=== PATIENT | female | born 1985 | race Caucasian/White ===

== ENCOUNTER 2018-06-22 20:17 | Emergency (ER) | payer SELFPAY ==
[2018-06-22] MEDS ORDERED: NORMAL SALINE 1000 ML 1,000 ML IV ONE (20:50)
[2018-06-22] MEDS ORDERED: METOCLOPRAMIDE HCL INJ/PF 10 MG/2 ML SDV IV ONE (20:50)
[2018-06-22 20:56] LABS: APPEARANCE,URINE SLIGHTLY-CLOUDY; BILIRUBIN,URINE NEGATIVE (NEGATIVE); COLOR,URINE YELLOW; GLUCOSE, URINE NEGATIVE (NEGATIVE); KETONES,URINE TRACE mg/dL (NEGATIVE); LEUKOCYTE ESTERASE,URINE TRACE (NEGATIVE); NITRITE,URINE NEGATIVE (NEGATIVE); PROTEIN,URINE NEGATIVE (NEGATIVE); URINE SPECIFIC GRAVITY 1.026; UROBILINOGEN,URINE NEGATIVE mg/dL (<2.0)
--- NOTE | 2018-06-22 20:58 | ER Document Report ---
ED General - General Chief Complaint: Possible Kidney Stone Stated Complaint: LEFT SIDE PAIN Time Seen by Provider: 06/22/18 20:41 Notes: Patient is a 33-year-old female, at 12 weeks gestation by first trimester ultrasound, that comes to the emergency department for 2 complaints. First complaint is left flank pain with decreased urination and intermittent nausea. She denies overt abdominal pain but states she does have some discomfort with urination. She denies vomiting. She denies fever. She does have a history of kidney stones. Second complaint is about 2 weeks of congestion, sinus discomfort, and mild cough. She states she wants to be tested for influenza. She follows with [facility]. Past medical history of hypertension, cholecystectomy, appendectomy. She has been taking Omnicef for 3 weeks now she reports, provided by her primary provider. TRAVEL OUTSIDE OF THE [place] IN LAST 30 DAYS: No - Related Data Allergies/Adverse Reactions: No Known Allergies Allergy (Unverified 06/06/16 16:27) Past Medical History - General Information source: Patient - Social History Smoking Status: Never Smoker Chew tobacco use (# tins/day): No Frequency of alcohol use: None Drug Abuse: None Lives with: Family Family History: Reviewed & Not Pertinent Patient has suicidal ideation: No Patient has homicidal ideation: No Renal/ Medical History: Denies: Hx Peritoneal Dialysis Past Surgical History: Reports: Hx Abdominal Surgery, Hx Cholecystectomy, Hx Orthopedic Surgery - right wrist, Hx Tonsillectomy - adenoids - Immunizations Hx Diphtheria, Pertussis, Tetanus Vaccination: Yes Review of Systems - Review of Systems Constitutional: See HPI EENT: See HPI Cardiovascular: No symptoms reported Respiratory: No symptoms reported Gastrointestinal: See HPI Genitourinary: See HPI Female Genitourinary: See HPI Musculoskeletal: No symptoms reported Skin: No symptoms reported Hematologic/Lymphatic: No symptoms reported Neurological/Psychological: No symptoms reported Physical Exam - Vital signs Vitals: Temp Pulse Resp BP Pulse Ox 98.6 F 100 16 133/85 H 90 L 06/22/18 20:33 06/22/18 20:33 06/22/18 20:33 06/22/18 20:33 06/22/18 20:33 - Notes Notes: GENERAL: Alert, interacts well. No acute distress. HEAD: Normocephalic, atraumatic. EYES: Pupils equal, round, and reactive to light. Extraocular movements intact. ENT: Oral mucosa moist, tongue midline. Oropharynx unremarkable. Airway patent. Nares patent, no nasal septal hematoma, TM's intact. NECK: Full range of motion. Supple. Trachea midline. LUNGS: Clear to auscultation bilaterally, no wheezes, rales, or rhonchi. No respiratory distress. HEART: Regular rate and rhythm. No murmur ABDOMEN: Soft, non-tender. Non-distended. Bowel sounds present in all 4 quadrants. GENITOURINARY: Deferred EXTREMITIES: Moves all 4 extremities spontaneously. No edema, normal radial and dorsalis pedis pulses bilaterally. No cyanosis. BACK: no cervical, thoracic, lumbar midline tenderness. Mild tenderness over the left mid to lower back, nonspecific, no CVA tenderness specifically, no signs of trauma. No saddle anesthesia, normal distal neurovascular exam. NEUROLOGICAL: Alert and oriented x3. Normal speech. [cranial nerves II through XII grossly intact]. PSYCH: Normal affect, normal mood. SKIN: Warm, dry, normal turgor. No rashes or lesions noted. Course - Re-evaluation Re-evalutation: Initial pulse oxygenation registered as 90, this was rechecked and normal. Patient has a soft benign abdomen, no CVA tenderness noted, vague left-sided back pain without any neurological deficits. No fever. Unremarkable respiratory and ENT exam. After Reglan patient started becoming jittery and anxious, she was given Benadryl, afterward symptoms resolved. Patient requesting to be tested for influenza, this was cbc and chemistry unremarkable. Urinalysis shows ketones and mildly elevated specific gravity but otherwise is generally unremarkable. Ultrasound without any concerning findings or evidence of passing stone. I discussed results with patient in detail. She is very pleased with this. She has been given IV fluids. States she feels much improved. Urine culture sent. Patient asking for something for intermittent nausea at home. She is provided with Zofran after discussion per request. Discussed follow-up and return precautions. Patient states understanding and agreement. Unremarkable vital signs. Stable at time of discharge. - Vital Signs Vital signs: Temp Pulse Resp BP Pulse Ox 98.6 F 87 16 123/74 97 06/22/18 20:33 06/22/18 23:04 06/22/18 20:33 06/22/18 23:04 06/22/18 23:04 - Laboratory Result Diagrams: 06/22/18 21:00 06/22/18 21:00 Laboratory results interpreted by me: 06/22/18 06/22/18 06/22/18 20:45 21:00 21:00 RDW 14.8 H Chloride 108 H Carbon Dioxide 21 L Urine Ketones TRACE H Ur Leukocyte Esterase TRACE H Urine Ascorbic Acid 40 H Urine HCG, Qual POSITIVE H Discharge - Discharge Clinical Impression: Flank pain, Nausea, Dehydration Condition: Stable Disposition: HOME, SELF-CARE Additional Instructions: Your ultrasound is reassuring without evidence of passing stone. Your workup shows dehydration but no other concerning abnormality. Your influenza test is negative. Recommend patient is to apply heat on your back, takedown of her pain , improve hydration, and rest. Take nausea medication if needed. Follow-up with your provider. Return if you worsen including vomiting, fever, abdominal pain or worsening flank pain, or any other concerning symptoms. Prescriptions: Ondansetron [Zofran Odt 4 mg Tablet] 1 - 2 tab PO Q4H PRN #15 tab.rapdis PRN Reason: For Nausea/Vomiting Referrals: PARISA CONNOR MD [Primary Care Provider] - Follow up as needed
[2018-06-22 21:21] LABS: ABSOLUTE EOSINOPHILS # (AUTO) 0.2 10^3/uL (0.0-0.6); ABSOLUTE LYMPHOCYTES (AUTO) 2.3 10^3/uL (0.5-4.7); ABSOLUTE MONOCYTES (AUTO) 0.6 10^3/uL (0.1-1.4); ABSOLUTE NEUT (AUTO) 4.2 10^3/uL (1.7-8.2); BASOPHILS % (AUTO) 0.4 % (0-2); EOSINOPHILS % (AUTO) 2.6 % (0-6); HEMATOCRIT 37.4 % (36.0-47.0); HEMOGLOBIN 12.6 g/dL (12.0-15.5); LYMPHOCYTES % (AUTO) 31.1 % (13-45); MEAN CORPUSCULAR HGB CONC 33.7 g/dL (32.0-36.0); MEAN CORPUSCULAR VOLUME 80 fl (80-97); MONOCYTES % (AUTO) 8.5 % (3-13); PLATELET COUNT 319 10^3/uL (150-450); RED BLOOD COUNT 4.68 10^6/uL (3.72-5.28); RED CELL DISTRIBUTION WIDTH 14.8 % (11.5-14.0); SEGMENTED NEUTROPHILS % (AUTO) 57.4 % (42-78); TOTAL CELLS COUNTED % (AUTO) 100 %; WHITE BLOOD COUNT 7.3 10^3/uL (4.0-10.5)
[2018-06-22] MEDS ORDERED: DIPHENHYDRAMINE HCL 50 MG/ML VIAL IV ONE (21:21)
[2018-06-22 21:23] LABS: ALANINE AMINOTRANSFERASE 15 U/L (9-52); ALKALINE PHOSPHATASE 90 U/L (38-126); ANION GAP 9 (5-19); ASPARTATE AMINO TRANSFERASE 14 U/L (14-36); BILIRUBIN,DIRECT 0.3 mg/dL (0.0-0.4); BILIRUBIN,TOTAL 0.3 mg/dL (0.2-1.3); BLOOD UREA NITROGEN 10 mg/dL (7-20); CALCIUM 9.6 mg/dL (8.4-10.2); CARBON DIOXIDE 21 mmol/L (22-30); CHLORIDE 108 mmol/L (98-107); GLUCOSE 87 mg/dL (75-110); POTASSIUM 3.8 mmol/L (3.6-5.0); SODIUM 137.8 mmol/L (137-145); TOTAL PROTEIN 6.6 g/dL (6.3-8.2)
[2018-06-22 21:34] LABS: A TYPE INFLUENZA AG NEGATIVE (NEGATIVE); B INFLUENZA AG NEGATIVE (NEGATIVE)
--- NOTE | 2018-06-22 22:35 | RADIOLOGY REPORT (SQ) ---
EXAM DESCRIPTION: US RETROPERITONEUM LIMITED COMPLETED DATE/TME: 06/22/2018 20:50 CLINICAL HISTORY: 33 years, Female, left flank pain COMPARISON: None. TECHNIQUE: Transverse and longitudinal sonographic images of the kidneys and urinary bladder LIMITATIONS: None. FINDINGS: Right kidney has maximal diameter of 11.2 cm, the left 11.1 cm. No renal calculus, mass, or hydronephrosis. No perinephric fluid collection. Ureteral jets are identified within the urinary bladder. Urinary bladder grossly unremarkable. IMPRESSION: Unremarkable exam copyright 2010 [employer]- All Rights Reserved
[2018-06-22 23:05] VITALS: BP 123/74
== END 2018-06-22 23:05 | disposition home or self-care (01) ==
LOC: ER 20:17
DX: O26.891 Other specified pregnancy related conditions, first trimester (principal); E86.0 Dehydration; R10.9 Unspecified abdominal pain; R11.0 Nausea; R33.9 Retention of urine, unspecified; R30.9 Painful micturition, unspecified; Z3A.12 12 weeks gestation of pregnancy; Z79.899 Other long term (current) drug therapy
CPT/HCPCS: 99284; 96361; 96374; 96375; 36415; 85025; 81025; 80053; 81001; 87804; 76775; J1200; J2765; J7030

== ENCOUNTER 2018-07-16 09:36 | Day surgery (SDC) | payer MEDICAID ==
[~2018-07-16 09:36] MED LIST: ACETAMINOPHEN 1,000 MG/100 ML RTUPB IV ONE; FENTANYL CITRATE INJ/PF 100 MCG/2 ML AMPUL ONE; KETAMINE HCL INJ 500 MG/10 ML VIAL ONE; LIDOCAINE 1%/EPINEPHRINE INJ 20 ML VIAL ONE; METHYLERGONOVINE MALEATE INJ/PF 0.2 MG/1 ML AMPULE ONE; MIDAZOLAM 2 MG/2 ML INJ ONE; PROPOFOL INJ 200 MG/20 ML VIAL IV ONE
[2018-07-16 10:12] LABS: APPEARANCE,URINE CLOUDY; BILIRUBIN,URINE NEGATIVE (NEGATIVE); COLOR,URINE YELLOW; GLUCOSE, URINE NEGATIVE (NEGATIVE); KETONES,URINE NEGATIVE (NEGATIVE); LEUKOCYTE ESTERASE,URINE MODERATE (NEGATIVE); NITRITE,URINE NEGATIVE (NEGATIVE); PROTEIN,URINE 30 mg/dL (NEGATIVE); URINE SPECIFIC GRAVITY 1.026; UROBILINOGEN,URINE NEGATIVE mg/dL (<2.0)
[2018-07-16] MEDS ORDERED: MIDAZOLAM 2 MG/2 ML INJ ONE (10:34)
[2018-07-16] MEDS ORDERED: DIPHENHYDRAMINE HCL 50 MG/ML VIAL ONE (10:34)
[2018-07-16] MEDS ORDERED: FAMOTIDINE INJ/PF 20 MG/2 ML SDV IV ONE (10:34)
[2018-07-16] MEDS ORDERED: ALBUTEROL SULFATE 0.083% NEB 2.5 MG/3 ML AMPUL NEB ONE (10:40)
[2018-07-16 10:46] LABS: HEMATOCRIT 36.3 % (36.0-47.0); HEMOGLOBIN 12.4 g/dL (12.0-15.5); MEAN CORPUSCULAR HGB CONC 34.2 g/dL (32.0-36.0); MEAN CORPUSCULAR VOLUME 79 fl (80-97); PLATELET COUNT 260 10^3/uL (150-450); RED BLOOD COUNT 4.59 10^6/uL (3.72-5.28); RED CELL DISTRIBUTION WIDTH 14.8 % (11.5-14.0); WHITE BLOOD COUNT 6.8 10^3/uL (4.0-10.5)
[2018-07-16 11:19] LABS: ANION GAP 11 (5-19); BLOOD UREA NITROGEN 8 mg/dL (7-20); CALCIUM 9.5 mg/dL (8.4-10.2); CARBON DIOXIDE 20 mmol/L (22-30); CHLORIDE 107 mmol/L (98-107); GLUCOSE 90 mg/dL (75-110); POTASSIUM 3.9 mmol/L (3.6-5.0); SODIUM 137.9 mmol/L (137-145)
[2018-07-16] MEDS ORDERED: DEXMEDETOMIDINE INJ 80 MCG/20 ML VIAL IV ONE (11:48)
--- NOTE | 2018-07-16 12:02 | OPERATIVE REPORT E ---
Operative Report NAME: FLOYD ANDERSEN : 1985 AGE: 33Y DATE OF SURGERY: 07/16/2018 ROOM: PREOPERATIVE DIAGNOSIS: Missed AB. POSTOPERATIVE DIAGNOSIS: Missed AB. OPERATION: Suction curettage. SURGEON: Moi DENNEY M.D. ANESTHESIA: General. ESTIMATED BLOOD LOSS: Less than 50 mL. TISSUE REMOVED: Products of conception. PROCEDURE: The patient was placed in the dorsal lithotomy position, prepped and draped in the usual sterile fashion. A speculum was placed. Cervix was visualized and grasped with a single-tooth tenaculum and was sounded to a depth of 14 cm. A #8 suction catheter was then placed through the os and suction curettage was performed followed by sharp curettage followed by repeat suction. The single-tooth tenaculum was removed. Hemostasis was noted. She tolerated it well and was taken to recovery in good condition. DICTATING PHYSICIAN: Moi DENNEY M.D. [id number] PHY#: [id number] ID: [id number] JOB#: [id number] ACCT: [id number] cc:Moi DENNEY M.D. >
[2018-07-16] MEDS ORDERED: OXYCODONE-ACETAMINOPHEN 5-325 MG TABLET PO PRN (12:20)
[2018-07-16] MEDS ORDERED: ONDANSETRON 4 MG TAB.RAPDIS PO PRN (12:20)
[2018-07-16] MEDS ORDERED: MEPERIDINE HCL/PF INJ 25 MG/1 ML DISP.SYRIN IV PRN (12:25)
[2018-07-16] MEDS ORDERED: FENTANYL CITRATE INJ/PF 100 MCG/2 ML AMPUL IV PRN ×3 (12:25)
[2018-07-16] MEDS ORDERED: ONDANSETRON HCL INJ/PF 4 MG/2 ML SDV IV PRN (12:25)
[2018-07-16] MEDS ORDERED: DIPHENHYDRAMINE HCL 50 MG/ML VIAL IV PRN (12:25)
[2018-07-16] MEDS ORDERED: PROMETHAZINE HCL INJ 25 MG/1 ML VIAL IV PRN (12:25)
[2018-07-16] MEDS: FENTANYL CITRATE INJ/PF 100 MCG/2 ML AMPUL ONE ×2 (12:28→12:33)
[2018-07-16] MEDS ORDERED: KETOROLAC TROMETHAMINE 60 MG/2 ML SDV ONE (12:37)
[2018-07-16] MEDS ORDERED: GLYCOPYRROLATE 1 MG/5 ML SYRINGE ONE (12:37)
[2018-07-16] MEDS ORDERED: DEXAMETHASONE SOD PHOSPHATE INJ 4 MG/1 ML VIAL ONE (12:37)
[2018-07-16] MEDS ORDERED: METOCLOPRAMIDE HCL INJ/PF 10 MG/2 ML SDV ONE (12:37)
[2018-07-16] MEDS ORDERED: ONDANSETRON HCL INJ/PF 4 MG/2 ML SDV ONE (12:37)
[2018-07-16] MEDS ORDERED: LIDOCAINE 2% INJ-PF (20 MG/ML) 2 ML AMPUL ONE (12:37)
[2018-07-16] MEDS ORDERED: IBUPROFEN 800 MG TABLET PO SCH (14:00)
[2018-07-16 14:20] VITALS: BP 110/64
== END 2018-07-16 14:21 | disposition home or self-care (01) ==
LOC: OROUT 09:36
PROVIDERS: ATTEND Obstetrics & Gynecology Gynecology
DX: O02.1 Missed abortion (principal); I10 Essential (primary) hypertension; Z88.5 Allergy status to narcotic agent; J45.909 Unspecified asthma, uncomplicated; R00.0 Tachycardia, unspecified; M10.9 Gout, unspecified; G43.909 Migraine, unspecified, not intractable, without status migrainosus; Z91.040 Latex allergy status; Z88.1 Allergy status to other antibiotic agents; Z87.892 Personal history of anaphylaxis; Z88.3 Allergy status to other anti-infective agents
CPT/HCPCS: 86900; 86901; 36415; 86850; 85027; 80048; 81001; 88305 ×2; 59820; J2250; J1100; J1200; J1885; J3010; J3490 ×4; J2765; J2405; J2704; S0028; J0131; 1965; J2210

== ENCOUNTER 2019-09-16 14:57 | Emergency (ER) | payer MEDICAID, OTHER ==
[2019-09-16] MEDS ORDERED: HYDROXYZINE PAMOATE 25 MG CAPSULE PO ONE (15:53)
--- NOTE | 2019-09-16 15:53 | ER Document Report ---
ED Medical Screen (RME) - General Chief Complaint: Chest Pain Stated Complaint: CHEST PAIN Time Seen by Provider: 09/16/19 15:46 Primary Care Provider: BEATRIZ GAMING JR, MD [Primary Care Provider] - Follow up as needed Mode of Arrival: Ambulatory Information source: Patient Notes: 34-year-old female with history anxiety, bipolar, PTSD presents to the emergency department with complaints of chest pain radiating down her left arm. She reports she is had an episode like this couple weeks ago was taken to 5 did not do plan and they told her it was her anxiety. She does take medication for anxiety. She denies fever vomiting diarrhea. She denies history of PE DVT. She denies recent trip. Patient is not taking control. I have greeted and performed a rapid initial assessment of this patient. A comprehensive ED assessment and evaluation of the patient, analysis of test results and completion of the medical decision making process will be conducted by additional ED providers. TRAVEL OUTSIDE OF THE [place] IN LAST 30 DAYS: No - Related Data Allergies/Adverse Reactions: cephalexin [From Keflex] Allergy (Verified 09/16/19 15:45) Hives ciprofloxacin Allergy (Verified 09/16/19 15:45) Hives clarithromycin [From Biaxin] Allergy (Verified 09/16/19 15:45) Hives Latex, Natural Rubber Allergy (Verified 09/16/19 15:45) Hives peanut Allergy (Verified 09/16/19 15:45) Anaphylaxis Past Medical History - Past Medical History Cardiac Medical History: Reports: Hx Hypertension Denies: Hx Coronary Artery Disease, Hx Heart Attack Pulmonary Medical History: Denies: Hx Asthma, Hx Bronchitis, Hx COPD, Hx Pneumonia Neurological Medical History: Denies: Hx Cerebrovascular Accident, Hx Seizures Renal/ Medical History: Denies: Hx Peritoneal Dialysis Musculoskeltal Medical History: Denies Hx Arthritis Past Surgical History: Reports: Hx Abdominal Surgery, Hx Cholecystectomy, Hx Orthopedic Surgery - right wrist, Hx Tonsillectomy - adenoids - Immunizations Hx Diphtheria, Pertussis, Tetanus Vaccination: Yes Physical Exam - Vital signs Vitals: Temp Pulse Resp BP Pulse Ox 99.3 F 127 H 16 135/99 H 97 09/16/19 15:06 09/16/19 15:06 09/16/19 15:06 09/16/19 15:06 09/16/19 15:06 Course - Vital Signs Vital signs: Temp Pulse Resp BP Pulse Ox 99.3 F 127 H 16 135/99 H 97 09/16/19 15:06 09/16/19 15:06 09/16/19 15:06 09/16/19 15:06 09/16/19 15:06 Doctor's Discharge - Discharge Referrals: BEATRIZ GAMING JR, MD [Primary Care Provider] - Follow up as needed
[2019-09-16] MEDS ORDERED: ASPIRIN 81 MG TABLET, CHEWABLE PO ONE (15:54)
--- NOTE | 2019-09-16 16:24 | RADIOLOGY REPORT (SQ) ---
EXAM DESCRIPTION: CHEST 2 VIEWS COMPLETED DATE/TIME: 09/16/2019 4:07 pm REASON FOR STUDY: cp COMPARISON: None. EXAM PARAMETERS: NUMBER OF VIEWS: two views TECHNIQUE: Digital Frontal and Lateral radiographic views of the chest acquired. RADIATION DOSE: NA LIMITATIONS: none FINDINGS: LUNGS AND PLEURA: No opacities, masses or pneumothorax. No pleural effusion. MEDIASTINUM AND HILAR STRUCTURES: No masses or contour abnormalities. HEART AND VASCULAR STRUCTURES: Heart normal size. No evidence for failure. BONES: No acute findings. HARDWARE: Clips in the upper abdomen. OTHER: No other significant finding. IMPRESSION: NO ACUTE RADIOGRAPHIC FINDING IN THE CHEST. TECHNICAL DOCUMENTATION: JOB ID: [id number] 2010 [employer]- All Rights Reserved Reading location - IP/workstation name: [email or web address]
[2019-09-16] MEDS ORDERED: MAG HYDROX/AL HYDROX/SIMETH SUSP 30 ML UDCUP PO ONE (17:07)
[2019-09-16] MEDS ORDERED: LIDOCAINE 2% VISCOUS SOLN 15 ML UDCUP PO ONE (17:07)
[2019-09-16] MEDS ORDERED: NORMAL SALINE 1000 ML 1,000 ML IV ONE (17:07)
--- NOTE | 2019-09-16 17:11 | ER Document Report ---
ED General - General Chief Complaint: Chest Pain > 30 Stated Complaint: CHEST PAIN Time Seen by Provider: 09/16/19 15:46 Primary Care Provider: BEATRIZ GAMING JR, MD [Primary Care Provider] - Follow up as needed Mode of Arrival: Ambulatory TRAVEL OUTSIDE OF THE [place] IN LAST 30 DAYS: No - HPI Notes: Patient is a 34-year-old female with a history of baseline tachycardia, hypertension, anxiety, bipolar, PTSD presents complaining of having substernal chest pain, palpitations, and burning sensation in her esophagus that began last night. Patient states that the pain is been constant. Patient states that she does have some pain rating into her left arm. Patient states that this happened a few weeks ago as well and was seen at another facility and told that it was anxiety. Patient states that she does have heart history within the family otherwise. She is able to eat and drink without difficulty. She is urinating normally and having normal bowel movements. Denies any headache, fever, neck pain, URI, sore throat, syncope, cough, shortness of breath, wheeze, dyspnea, abdominal pain, nausea/vomiting/diarrhea, urinary retention, dysuria, hematuria, or rash. Denies any prolonged immobilization, distance travel, recent surgery/trauma, personal cancer history, hormone use, smoking, or previous DVT/PE. - Related Data Allergies/Adverse Reactions: cephalexin [From Keflex] Allergy (Verified 09/16/19 15:45) Hives ciprofloxacin Allergy (Verified 09/16/19 15:45) Hives clarithromycin [From Biaxin] Allergy (Verified 09/16/19 15:45) Hives Latex, Natural Rubber Allergy (Verified 09/16/19 15:45) Hives peanut Allergy (Verified 09/16/19 15:45) Anaphylaxis Past Medical History - General Information source: Patient - Social History Smoking Status: Never Smoker Chew tobacco use (# tins/day): No Frequency of alcohol use: None Drug Abuse: None Family History: Reviewed & Not Pertinent Patient has suicidal ideation: No Patient has homicidal ideation: No - Past Medical History Cardiac Medical History: Reports: Hx Hypertension Denies: Hx Coronary Artery Disease, Hx Heart Attack Pulmonary Medical History: Denies: Hx Asthma, Hx Bronchitis, Hx COPD, Hx Pneumonia Neurological Medical History: Denies: Hx Cerebrovascular Accident, Hx Seizures Renal/ Medical History: Denies: Hx Peritoneal Dialysis Musculoskeletal Medical History: Denies Hx Arthritis Past Surgical History: Reports: Hx Abdominal Surgery, Hx Cholecystectomy, Hx Orthopedic Surgery - right wrist, Hx Tonsillectomy - adenoids - Immunizations Hx Diphtheria, Pertussis, Tetanus Vaccination: Yes Review of Systems - Review of Systems -: Yes All other systems reviewed and negative Physical Exam - Vital signs Vitals: Temp Pulse Resp BP Pulse Ox 99.3 F 127 H 16 135/99 H 97 09/16/19 15:06 09/16/19 15:06 09/16/19 15:06 09/16/19 15:06 09/16/19 15:06 - Notes Notes: PHYSICAL EXAMINATION: GENERAL: Well-appearing, well-nourished and in no acute distress. HEAD: Atraumatic, normocephalic. EYES: Pupils equal round and reactive to light, extraocular movements intact, sclera anicteric, conjunctiva are normal. ENT: Nares patent and without discharge. oropharynx clear without exudates. No tonsilar hypertrophy or erythema. Moist mucous membranes. NECK: Normal range of motion, supple without lymphadenopathy. + reproducible tenderness left trapezius muscle with trigger point noted that reproduces symptoms into her left arm. Spurling, possible minimally positive. Chest: reproducible tenderness to palp sternal chest wall and by ROM. LUNGS: Breath sounds clear to auscultation bilaterally and equal. No wheezes rales or rhonchi. HEART: Regular rate and rhythm without murmurs, rubs, gallops. ABDOMEN: Soft, nontender, nondistended abdomen. No guarding, no rebound. Normal bowel sounds present. No CVA tenderness bilaterally. Musculoskeletal: FROM to passive/active. Strength 5+/5. [place] neg. No asymmetry to LE's. Extremities: No cyanosis, clubbing, or edema b/l. Peripheral pulses 2+. Capillary refill less than 3 seconds. NEUROLOGICAL: Normal speech, normal gait. PSYCH: Normal mood, normal affect. SKIN: Warm, Dry, normal turgor, no rashes or lesions noted. Course - Re-evaluation Re-evalutation: 09/16/19 17:10 HR currently 92 during my exam. 09/16/19 20:[address] Daniel who is in agreement with dispo/plan: Patient is an afebrile, well-hydrated 34-year-old female who presents to the ED with chest wall pain and left neck pain. Vitals are acceptable without any si gnificant tachycardia, tachypnea, or hypoxia. PE is otherwise unremarkable aside from the reproducible sternal chest wall tenderness and reproducible tenderness to the left trap muscle/neck. Patient is nontoxic-appearing and is tolerating p.o. without any difficulties. CBC, CMP, EKG/cardiac enzymes 2, d- dimer, chest x-ray are all unremarkable for any acute pathology. Patient has a heart score of 1, Wells score of low risk. Patient does not have any dyspnea or shortness of breath. Patient's presentation and symptomatology creates low suspicion for ACS, PE, pneumothorax, pericarditis, dissection, respiratory compromise, severe dehydration, sepsis, meningitis, or other systemic emergent condition at this time. Patient is aware that this condition can change from initial presentation and she needs to monitor symptoms closely and seek medical attention for any acute changes. Pt is feeling better and would like to go home. Recommend conservative measures for symptoms. Recheck with your PCM in 2-3 days. Consider consult with Cardiology. Return to the ED with any worsening/concerning symptoms otherwise as reviewed in discharge. Patient is in agreement. - Vital Signs Vital signs: Temp Pulse Resp BP Pulse Ox 97.5 F 105 H 18 115/78 98 09/16/19 19:20 09/16/19 19:20 09/16/19 19:20 09/16/19 19:20 09/16/19 19:20 - Laboratory Result Diagrams: 09/16/19 17:27 09/16/19 17:27 Laboratory results interpreted by me: 09/16/19 09/16/19 17:27 17:27 RBC 5.57 H MCH 26.7 L RDW 15.4 H AST 77 H ALT 109 H Discharge - Discharge Clinical Impression: Chest wall pain, Neck pain on left side Condition: Stable Disposition: HOME, SELF-CARE Instructions: Chest Wall Pain ([facility]) Additional Instructions: Maintain adequate fluid and food intake Rest, ice, heat, light stretches Low sodium/fat diet Monitor blood pressure daily and keep a log Monitor symptoms for any acute changes Recheck with your PCM in 2-3 days Consider a follow-up with cardiology Return to the ED with any worsening symptoms and/or development of fever, headache, chest pain, palpitations, syncope, shortness of breath, trouble breathing, abdominal pain, n/v/d, blood in stool/urine, loss of control of bowel/bladder, urinary retention, muscle weakness/paralysis, numbness/tingling, or other worsening symptoms that are concerning to you. Prescriptions: Ibuprofen [Motrin 800 mg Tablet] 800 mg PO Q8H PRN #15 tab PRN Reason: Methocarbamol [Robaxin 750 mg Tablet] 750 mg PO TID PRN #10 tablet PRN Reason: Forms: Return to Work Referrals: BEATRIZ GAMING JR, MD [Primary Care Provider] - Follow up as needed ROSARIO GRAY MD [ACTIVE STAFF] - Follow up as needed
[2019-09-16 17:55] LABS: APPEARANCE,URINE SLIGHTLY-CLOUDY; BILIRUBIN,URINE NEGATIVE (NEGATIVE); COLOR,URINE YELLOW; GLUCOSE, URINE NEGATIVE (NEGATIVE); KETONES,URINE NEGATIVE (NEGATIVE); LEUKOCYTE ESTERASE,URINE NEGATIVE (NEGATIVE); NITRITE,URINE NEGATIVE (NEGATIVE); PROTEIN,URINE NEGATIVE (NEGATIVE); UROBILINOGEN,URINE NEGATIVE mg/dL (<2.0)
[2019-09-16 17:57] LABS: ADD MANUAL MICROSCOPIC YES
[2019-09-16 18:01] LABS: WBC,URINE RARE /HPF
[2019-09-16 18:04] LABS: ABSOLUTE EOSINOPHILS # (AUTO) 0.2 10^3/uL (0.0-0.6); ABSOLUTE LYMPHOCYTES (AUTO) 2.7 10^3/uL (0.5-4.7); ABSOLUTE MONOCYTES (AUTO) 0.5 10^3/uL (0.1-1.4); ABSOLUTE NEUT (AUTO) 4.9 10^3/uL (1.7-8.2); BASOPHILS % (AUTO) 0.6 % (0-2); EOSINOPHILS % (AUTO) 2.5 % (0-6); HEMATOCRIT 44.5 % (36.0-47.0); HEMOGLOBIN 14.9 g/dL (12.0-15.5); LYMPHOCYTES % (AUTO) 32.7 % (13-45); MEAN CORPUSCULAR HEMOGLOBIN 26.7 pg (27.0-33.4); MEAN CORPUSCULAR HGB CONC 33.5 g/dL (32.0-36.0); MEAN CORPUSCULAR VOLUME 80 fl (80-97); MONOCYTES % (AUTO) 6.1 % (3-13); PLATELET COUNT 328 10^3/uL (150-450); RED BLOOD COUNT 5.57 10^6/uL (3.72-5.28); RED CELL DISTRIBUTION WIDTH 15.4 % (11.5-14.0); SEGMENTED NEUTROPHILS % (AUTO) 58.1 % (42-78); TOTAL CELLS COUNTED % (AUTO) 100 %; WHITE BLOOD COUNT 8.4 10^3/uL (4.0-10.5)
[2019-09-16 18:20] LABS: ALBUMIN 4.7 g/dL (3.5-5.0); ALKALINE PHOSPHATASE 122 U/L (38-126); ANION GAP 10 (5-19); ASPARTATE AMINO TRANSFERASE 77 U/L (14-36); BILIRUBIN,DIRECT 0.1 mg/dL (0.0-0.4); BILIRUBIN,TOTAL 0.4 mg/dL (0.2-1.3); BLOOD UREA NITROGEN 14 mg/dL (7-20); CALCIUM 9.8 mg/dL (8.4-10.2); CARBON DIOXIDE 28 mmol/L (22-30); CHLORIDE 101 mmol/L (98-107); GLUCOSE 89 mg/dL (75-110); POTASSIUM 4.4 mmol/L (3.6-5.0); TOTAL PROTEIN 8.1 g/dL (6.3-8.2)
[2019-09-16] MEDS ORDERED: DICYCLOMINE HCL 20 MG TABLET PO ONE (19:14)
[2019-09-16] MEDS ORDERED: LORAZEPAM INJ 2 MG/1 ML VIAL IV ONE (19:14)
--- NOTE | 2019-09-16 19:29 | EKG REPORT ---
SEVERITY:- BORDERLINE ECG - SINUS TACHYCARDIA BORDERLINE T ABNORMALITIES, INFERIOR LEADS : Confirmed by: Dorota Perez 16-Sep-2019 19:29:18
[2019-09-16] MEDS ORDERED: KETOROLAC TROMETHAMINE INJ/PF 30 MG/1 ML SDV IV ONE (19:50)
[2019-09-16] MEDS ORDERED: DEXAMETHASONE SOD PHOS INJ 10 MG/1 ML VIAL IV ONE (19:50)
[2019-09-16 21:16] VITALS: BP 118/75
== END 2019-09-16 21:10 | disposition home or self-care (01) ==
LOC: ER 14:57
DX: R07.89 Other chest pain (principal); M54.2 Cervicalgia; I10 Essential (primary) hypertension; R00.2 Palpitations; Z88.1 Allergy status to other antibiotic agents; Z91.040 Latex allergy status; Z91.010 Allergy to peanuts
CPT/HCPCS: 93005; 99285; 96361; 96374; 96375; 36415; 83735; 84443; 85025; 81025; 80053; 81001; 84484; 85379; 71046; 93010; J3490 ×2; J1885; J2060; J7030; J1100

== ENCOUNTER 2020-02-28 22:18 | Emergency (ER) | payer OTHER, MEDICAID ==
--- NOTE | 2020-02-28 23:48 | ER Document Report ---
ED Medical Screen (RME) - General Chief Complaint: Blood Pressure Problem Stated Complaint: BLOOD PRESSURE PROBLEM, SWOLLEN FEET, LEG PAIN Time Seen by Provider: 02/28/20 23:46 Primary Care Provider: BEATRIZ GAMING JR, MD [Primary Care Provider] - Follow up as needed Mode of Arrival: Ambulatory Information source: Patient Notes: HPI; 34-year-old female presents to the emergency room complaining of worsening swelling to her feet ankles that is now progressing up her right leg. Patient states she is been being seen by her primary care physician at [facility] for the past 2 months had blood work and chest x-ray done that were all within normal limits. States she has an appointment to see a digital archivist on April 07 but the swelling has gotten worse. Is currently taking Lasix potassium and metoprolol which she states is not helping. She denies any recent travel. No history of DVTs. No COVID-19 exposure. No change in diet. PE: Alert and oriented x3. Mild distress noted. Lungs: Clear to auscultation without rales, rhonchi, wheezes. Heart: Tachycardic without murmurs, rubs, gallops. 2+ pitting edema bilaterally to her lower extremities. I have greeted and performed a rapid initial assessment of this patient. A comprehensive ED assessment and evaluation of the patient, analysis of test results and completion of the medical decision making process will be conducted by additional ED providers. I have specifically instructed the patient or family members with the patient to immediately return to any nursing staff should anything change in the patient's condition or with their chief complaint. TRAVEL OUTSIDE OF THE [place] IN LAST 30 DAYS: No - Related Data Allergies/Adverse Reactions: cephalexin [From Keflex] Allergy (Verified 09/16/19 15:45) Hives ciprofloxacin Allergy (Verified 09/16/19 15:45) Hives clarithromycin [From Biaxin] Allergy (Verified 09/16/19 15:45) Hives Latex, Natural Rubber Allergy (Verified 09/16/19 15:45) Hives peanut Allergy (Verified 09/16/19 15:45) Anaphylaxis Past Medical History - Past Medical History Cardiac Medical History: Reports: Hx Hypertension Denies: Hx Coronary Artery Disease, Hx Heart Attack Pulmonary Medical History: Denies: Hx Asthma, Hx Bronchitis, Hx COPD, Hx Pneumonia Neurological Medical History: Denies: Hx Cerebrovascular Accident, Hx Seizures Renal/ Medical History: Denies: Hx Peritoneal Dialysis Musculoskeltal Medical History: Denies Hx Arthritis Past Surgical History: Reports: Hx Abdominal Surgery, Hx Cholecystectomy, Hx Orthopedic Surgery - right wrist, Hx Tonsillectomy - adenoids - Immunizations Hx Diphtheria, Pertussis, Tetanus Vaccination: Yes Physical Exam - Vital signs Vitals: Temp Pulse Resp BP Pulse Ox 97.9 F 103 H 18 116/76 93 02/28/20 22:37 02/28/20 22:37 02/28/20 22:37 02/28/20 22:37 02/28/20 22:37 Course - Vital Signs Vital signs: Temp Pulse Resp BP Pulse Ox 97.9 F 103 H 18 116/76 93 02/28/20 22:37 02/28/20 22:37 02/28/20 22:37 02/28/20 22:37 02/28/20 22:37 Doctor's Discharge - Discharge Referrals: BEATRIZ GAMING JR, MD [Primary Care Provider] - Follow up as needed
[2020-02-29 00:07] LABS: ABSOLUTE BASOPHILS # (AUTO) 0.1 10^3/uL (0.0-0.2); ABSOLUTE EOSINOPHILS # (AUTO) 0.4 10^3/uL (0.0-0.6); ABSOLUTE MONOCYTES (AUTO) 0.5 10^3/uL (0.1-1.4); ABSOLUTE NEUT (AUTO) 3.6 10^3/uL (1.7-8.2); BASOPHILS % (AUTO) 0.8 % (0-2); EOSINOPHILS % (AUTO) 5.2 % (0-6); HEMATOCRIT 38.2 % (36.0-47.0); HEMOGLOBIN 12.5 g/dL (12.0-15.5); LYMPHOCYTES % (AUTO) 39.9 % (13-45); MEAN CORPUSCULAR HEMOGLOBIN 25.9 pg (27.0-33.4); MEAN CORPUSCULAR HGB CONC 32.7 g/dL (32.0-36.0); MEAN CORPUSCULAR VOLUME 79 fl (80-97); MONOCYTES % (AUTO) 6.2 % (3-13); PLATELET COUNT 274 10^3/uL (150-450); RED BLOOD COUNT 4.81 10^6/uL (3.72-5.28); RED CELL DISTRIBUTION WIDTH 16.1 % (11.5-14.0); SEGMENTED NEUTROPHILS % (AUTO) 47.9 % (42-78); TOTAL CELLS COUNTED % (AUTO) 100 %; WHITE BLOOD COUNT 7.5 10^3/uL (4.0-10.5)
[2020-02-29 00:11] LABS: APPEARANCE,URINE SLIGHTLY-CLOUDY; BILIRUBIN,URINE NEGATIVE (NEGATIVE); GLUCOSE, URINE NEGATIVE (NEGATIVE); KETONES,URINE NEGATIVE (NEGATIVE); LEUKOCYTE ESTERASE,URINE NEGATIVE (NEGATIVE); NITRITE,URINE NEGATIVE (NEGATIVE); PROTEIN,URINE 100 mg/dL (NEGATIVE); URINE SPECIFIC GRAVITY 1.033; UROBILINOGEN,URINE NEGATIVE mg/dL (<2.0)
[2020-02-29 00:12] LABS: COLOR,URINE DARK YELLOW
[2020-02-29 00:25] LABS: ALBUMIN 4.4 g/dL (3.5-5.0); ALKALINE PHOSPHATASE 106 U/L (38-126); ANION GAP 9 (5-19); ASPARTATE AMINO TRANSFERASE 79 U/L (14-36); BILIRUBIN,TOTAL 0.3 mg/dL (0.2-1.3); BLOOD UREA NITROGEN 15 mg/dL (7-20); CALCIUM 9.6 mg/dL (8.4-10.2); CARBON DIOXIDE 25 mmol/L (22-30); CHLORIDE 105 mmol/L (98-107); GLUCOSE 105 mg/dL (75-110); POTASSIUM 3.9 mmol/L (3.6-5.0); TOTAL PROTEIN 7.3 g/dL (6.3-8.2)
--- NOTE | 2020-02-29 00:32 | RADIOLOGY REPORT (SQ) ---
EXAM DESCRIPTION: XR CHEST 2 VIEWS COMPLETED DATE/TME: 02/28/2020 23:46 CLINICAL HISTORY: 34 years, Female, edema COMPARISON: 09/16/2019 chest NUMBER OF VIEWS: 2 TECHNIQUE: 2 views of the chest LIMITATIONS: None. FINDINGS: Heart size normal. Lungs clear. No pneumothorax IMPRESSION: Negative chest copyright 2011 [employer]- All Rights Reserved
[2020-02-29] MEDS ORDERED: FUROSEMIDE INJ/PF 20 MG/2 ML SDV IV ONE (03:11)
[2020-02-29 03:56] LABS: FREE T3 4.09 pg/mL (2.77-5.27); FREE T4 (FREE THYROXINE) 0.72 ng/dL (0.78-2.19)
[2020-02-29 04:09] LABS: THYROID STIMULATING HORMONE 11.3 uIU/mL (0.47-4.68)
[2020-02-29] MEDS ORDERED: HYDROCODONE/ACETAMINOPHEN 5-325 MG TABLET PO ONE (04:11)
--- NOTE | 2020-02-29 04:16 | ER Document Report ---
Entered by MARLEE CALZADA SCRIBE 02/29/20 0252 Acting as scribe for:JUAN PABLO DIAZ IV, MD ED Extremity Problem, Lower - General Chief Complaint: Leg Swelling Stated Complaint: BLOOD PRESSURE PROBLEM, SWOLLEN FEET, LEG PAIN Time Seen by Provider: 02/28/20 23:46 Primary Care Provider: BEATRIZ GAMING JR, MD [Primary Care Provider] - Follow up as needed Mode of Arrival: Ambulatory Information source: Patient Notes: This 34 year old female patient with a history of HTN presents to the ED today with complaints of bilateral lower extremity swelling and pain, right greater than left, for the past x2 months, worse last night. Patient states that she was switched from Propanolol to Metoprolol x3 weeks ago and has been taking Lasix and Potassium Chloride for x2 months. She reports increased swelling up to her knees despite taking Lasix every day. She mentions that she has cut back on salt and starch in her diet and has increased her water intake. Denies chest pain, shortness of breath, recent injury, prolonged trips, or history of DVT. Never smoker. She is not on any control. Patient reports that she has seen her PCP recently with her complaints and had a normal workup including a chest x-ray and labs. 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 Patient states that she did not have any cardiac issues until she had some complications giving to her daughter about x11 years ago. TRAVEL OUTSIDE OF THE [place] IN LAST 30 DAYS: No - Related Data Allergies/Adverse Reactions: cephalexin [From Keflex] Allergy (Verified 09/16/19 15:45) Hives ciprofloxacin Allergy (Verified 09/16/19 15:45) Hives clarithromycin [From Biaxin] Allergy (Verified 09/16/19 15:45) Hives Latex, Natural Rubber Allergy (Verified 09/16/19 15:45) Hives peanut Allergy (Verified 09/16/19 15:45) Anaphylaxis Home Medications: propranolol, kcl, lasix Past Medical History - General Information source: Patient, [facility] Records - Social History Smoking Status: Never Smoker Cigarette use (# per day): No Chew tobacco use (# tins/day): No Smoking Education Provided: No Family History: Reviewed & Not Pertinent Patient has suicidal ideation: No Patient has homicidal ideation: No - Past Medical History Cardiac Medical History: Reports: Hx Hypertension Past Surgical History: Reports: Hx Abdominal Surgery, Hx Adenoidectomy, Hx Cholecystectomy, Hx Orthopedic Surgery - right wrist, Hx Tonsillectomy - Immunizations Hx Diphtheria, Pertussis, Tetanus Vaccination: Yes Review of Systems - Review of Systems Constitutional: No symptoms reported EENT: No symptoms reported Cardiovascular: See HPI. denies: Chest pain Respiratory: See HPI. denies: Short of breath Gastrointestinal: No symptoms reported Genitourinary: No symptoms reported Female Genitourinary: No symptoms reported Musculoskeletal: See HPI, Muscle pain, Leg swelling Skin: No symptoms reported Hematologic/Lymphatic: No symptoms reported Neurological/Psychological: No symptoms reported -: Yes All other systems reviewed and negative Physical Exam - Vital signs Vitals: Temp Pulse Resp BP Pulse Ox 97.9 F 103 H 18 116/76 93 02/28/20 22:37 02/28/20 22:37 02/28/20 22:37 02/28/20 22:37 02/28/20 22:37 - General General appearance: Alert In distress: None - HEENT Head: Normocephalic, Atraumatic Eyes: Normal Pupils: PERRL - Respiratory Respiratory status: No respiratory distress Chest status: Nontender Breath sounds: Normal Chest palpation: Normal - Cardiovascular Rhythm: Regular Heart sounds: Normal auscultation Murmur: No Friction rub: No Gallop: None auscultated - Abdominal Inspection: Normal Distension: No distension Bowel sounds: Normal Tenderness: Nontender - Abdomen soft Organomegaly: No organomegaly - Back Back: Normal, Nontender - Extremities General upper extremity: Normal inspection General lower extremity: Edema - Mild pitting edema noted to bilateral lower extremities - Neurological Neuro grossly intact: Yes Orientation: AAOx4 [place] Coma Scale Eye Opening: Spontaneous [place] Coma Scale Verbal: Oriented Heri Coma Scale Motor: Obeys Commands [place] Coma Scale Total: 15 - Psychological Associated symptoms: Normal affect, Normal mood - Skin Skin Temperature: Warm Skin Moisture: Dry Skin Color: Normal Course - Re-evaluation Re-evalutation: 02/29/20 05:03 Results of ED MSE discussed with patient and patient's mother. All questions were answered prior to discharge. Patient states she is feeling much better after IV Lasix and states that the pain and swelling has decreased in her legs bilaterally. Emergency signs and symptoms, reasons to return to the emergency department discussed with patient and patient's mother. 02/29/20 05:19 Patient states she is supposed to meet with a steam distribution supervisor but the appointment is not for another month. This MD offered to refer the patient to Dr. Bhakta. Patient was pleased to be given this referral in order to be seen sooner. - Vital Signs Vital signs: Temp Pulse Resp BP Pulse Ox 97.7 F 92 18 107/71 97 02/29/20 04:21 02/29/20 04:21 02/29/20 04:21 02/29/20 04:21 02/29/20 04:21 - Laboratory Result Diagrams: 02/28/20 23:59 02/28/20 23:59 Laboratory results interpreted by me: 02/28/20 02/28/20 02/28/20 23:51 23:59 23:59 MCV 79 L MCH 25.9 L RDW 16.1 H AST 79 H ALT 108 H TSH Free T4 Urine Protein 100 H Urine Ascorbic Acid 40 H 02/28/20 23:59 MCV MCH RDW AST ALT TSH 11.30 H Free T4 0.72 L Urine Protein Urine Ascorbic Acid - Diagnostic Test Radiology reviewed: Reports reviewed - EKG Interpretation by Me Additional EKG results interpreted by me: 02/29/20 05:04 EKG obtained on 02/29/2020 at 0404 hrs. was interpreted by this MD. Findings: Normal sinus rhythm, rate 94, normal axis, P waves proceed QRS complexes, QRS complexes appear narrow, there are no obvious patterns of ST segment elevation or depression present to suggest acute myocardial ischemia or infarction. Impression: Normal sinus rhythm with nonspecific ST segments. 02/29/20 05:18 Discharge - Discharge Clinical Impression: Bilateral lower extremity edema Hypothyroidism Qualifiers: Hypothyroidism type: unspecified Qualified Code(s): E03.9 - Hypothyroidism, unspecified Condition: Stable Disposition: HOME, SELF-CARE Additional Instructions: Return to the Emergency Department without delay if any worse. HOME CARE INSTRUCTIONS & INFORMATION: Thank you for choosing us for your medical needs. We hope you're satisfied with the care you received. After you leave, you must properly care for your problem and, at the same time, observe its progress. Any condition can change. Some illnesses can change rapidly over hours or days. If your condition worsens, return to the Emergency Department or see your physician promptly. ABOUT YOUR X-RAYS AND EKG'S: If you had an EKG or X-rays taken, they have been read by the Emergency Physician. The X-rays and EKG's will also be read by a Radiologist or Welding Machine Operator [place] within 24 hours. If discrepancies are noted, you will be notified by telephone. Please be certain the ED has a correct telephone number & address where you can be reached. Also, realize that some fractures or abnormalities do not show up on initial X-rays. If your symptoms continue, see your physician. ABOUT YOUR LABORATORY TEST: If you had laboratory tests, the results have been reviewed by the Emergency Physician. Some test results (for example cultures) may not be available for several days. You will be contacted if any test result shows you need additional treatment. Please be certain the ED has a correct telephone number and address where you can be reached. ABOUT YOUR MEDICATIONS: You will receive instructions on how to take your m edicine on the prescription label you receive. Additional information may be provided by the Pharmacy. If you have questions afterwards, call the ED for clarification or further instructions. Some prescribed medications may cause drowsiness. Do not perform tasks such as driving a car or operating machinery without consulting your Pharmacist. If you feel you need a refill of pain medication, your condition will need re-evaluation. Please do not call for a refill of any medication. ABOUT YOUR SIGNATURE: Signature of this document acknowledges to followin. Understanding that you received emergency treatment and that you may be released before al medical problems are known or treated. Please be certain the ED has a correct phone number & address where you can be reached. 2. Acknowledgement that you will arrange for follow-up care as recommended. 3. Authorization for the Emergency Physician to provide information to your follow-up Physician in order to maximize your care. AT ANY TIME, IF YOUR SYMPTOMS CHANGE SIGNIFICANTLY OR WORSEN OR YOU DEVELOP NEW SYMPTOMS, RETURN TO THE EMERGENCY DEPARTMENT IMMEDIATELY FOR RE-EVALUATION. OUR GOAL IS TO PROVIDE EXCELLENT MEDICAL CARE! WE HOPE THAT WE HAVE MET YOUR EXPECTATIONS DURING YOUR EMERGENCY DEPARTMENT VISIT AND THAT YOU FEEL YOU HAVE RECEIVED EXCELLENT CARE! Hypothyroidism The thyroid gland is found in the front of the neck. It produces thyroid hormone. Thyroid hormone regulates the metabolism. Hypothyroidism means the gland is not turning out enough thyroid hormone. Too much thyroid hormone "turns up the thermostat" too high, causing weight loss, nervousness, rapid heartbeat, and weakness. Too little thyroid hormone causes fatigue, depression, weight gain, and hair thinning. Hypothyroidism is treated with thyroid replacement pills. Testing can show if there are other hormone problems, and can determine whether the pituitary gland or thyroid gland is at fault. Contact the doctor or return if you change for the worse -- for example, palpitations, severe nervousness, chest pain, shortness of breath, worsening weakness or lightheadedness. Forms: Follow-Up Radiology Testing Referrals: BEATRIZ GAMING JR, MD [Primary Care Provider] - Follow up as needed ROSARIO BHAKTA MD [ACTIVE STAFF] - 03/01/20 (call to schedule appointment) I personally performed the services described in the documentation, reviewed and edited the documentation which was dictated to the scribe in my presence, and it accurately records my words and actions.
[2020-02-29 05:42] VITALS: BP 123/78
--- NOTE | 2020-02-29 20:20 | EKG REPORT ---
SEVERITY:- NORMAL ECG - SINUS RHYTHM : Confirmed by: Dorota Perez 29-Feb-2020 20:19:16
== END 2020-02-29 05:42 | disposition home or self-care (01) ==
LOC: ER 22:18
DX: R60.0 Localized edema (principal); I10 Essential (primary) hypertension; M79.604 Pain in right leg; M79.605 Pain in left leg; M79.10 Myalgia, unspecified site; E03.9 Hypothyroidism, unspecified; Z79.899 Other long term (current) drug therapy; Z91.040 Latex allergy status; Z88.1 Allergy status to other antibiotic agents; Z87.892 Personal history of anaphylaxis; Z91.010 Allergy to peanuts
CPT/HCPCS: 93005; 99285; 96374; 36415; 84439; 83735; 84443; 84703; 85025; 80053; 81001; 84481; 83880; 71046; 93010; J1940